=== PATIENT | female | born 2000 | race Caucasian/White ===

== ENCOUNTER 2019-09-13 12:37 | Outpatient (REF) | payer BC, SELFPAY ==
[2019-09-15 18:35] LABS: Chlamydia Result Negative (Negative); GC Result Negative (Negative)
== END 2019-09-13 12:57 ==
LOC: LBN 12:37
PROVIDERS: PCP Pediatrics; Visit Provider Nurse Practitioner Women's Health
DX: Z11.3 Encounter for screening for infections with a predominantly sexual mode of transmission (principal)
CPT/HCPCS: 87491; 87591

== ENCOUNTER 2020-11-02 12:16 | Outpatient (REF) | payer BC, SELFPAY ==
--- NOTE | 2020-11-02 10:00 | PAPFT_PTH ---
PATIENT: Jada Mantilla LOC: [facility] U#:[id number] AGE/SX: 20/F ROOM: RE11/02/[address]: ARCHIE Mackay : 2000 BED: DIS: 11/02/2020 SPEC #: [id number] RECD: 11/02/20 13:07 STATUS: FLORY REEsau #: [id number] ANGE: 11/02/20 10:[address]: Daniela Patel DEPT: [facility] Cytology RECD BY: Joanie Jordan ENTERED: 11/02/20 13:07 SP TYPE: PAPFT OTHR DR: ELSIE Vilchis Tissues: 1 - CX/ENDOCX FOR PAP SMEARS Procedures: PAP THIN PREP/[facility] Screening Comments: [id number]
[2020-11-05 15:35] LABS: Chlamydia Result Negative (Negative); GC Result Negative (Negative)
== END 2020-11-02 12:17 | disposition home or self-care (01) ==
LOC: LBN 12:16
PROVIDERS: PCP Nurse Practitioner Pediatrics; Referring Provider Nurse Practitioner Family; Visit Provider Nurse Practitioner Family
DX: Z11.3 Encounter for screening for infections with a predominantly sexual mode of transmission (principal); Z12.4 Encounter for screening for malignant neoplasm of cervix
CPT/HCPCS: 87491; 87591; 88142

== ENCOUNTER 2020-11-17 14:41 | Outpatient (REF) | payer BC, SELFPAY ==
[2020-11-19 11:54] LABS: COVID-19 RT-PCR UVMMC Result Negative (Negative)
== END 2020-11-17 14:42 | disposition home or self-care (01) ==
LOC: LBN 14:41
PROVIDERS: PCP Nurse Practitioner Pediatrics; Visit Provider Nurse Practitioner Family
DX: R05.3 Chronic cough (principal); J02.9 Acute pharyngitis, unspecified; H92.03 Otalgia, bilateral; Z20.822 Contact with and (suspected) exposure to COVID-19
CPT/HCPCS: U0003; 87070